=== PATIENT | male | born 1995 | race Two or more races ===

== ENCOUNTER 2022-11-02 15:12 | Emergency (ER) | payer OTHER ==
[~2022-11-02] VITALS: Ht 175.3 cm; Wt 81.6 kg
[2022-11-02 15:18] VITALS: BP 138/85
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
[2022-11-02] MEDS ORDERED: CYCL5TAB PO (16:42)
[2022-11-02] MEDS ORDERED: IBUP-1955 PO (16:42)
--- NOTE | 2022-11-02 16:50 | NUR ---
Patient discharged to home in stable condition. Written and verbal after care instructions given. Patient verbalizes understanding of instruction.
== END 2022-11-02 16:50 | disposition home or self-care (01) ==
LOC: ER 15:31
DX: M25.562 Pain in left knee (principal); M25.561 Pain in right knee; M54.50 Low back pain, unspecified; Z79.899 Other long term (current) drug therapy; V43.52XA Car driver injured in collision with other type car in traffic accident, initial encounter; Y93.89 Activity, other specified; Y92.411 Interstate highway as the place of occurrence of the external cause; Y99.8 Other external cause status